=== PATIENT | male | born 1960 | race Caucasian/White ===

== ENCOUNTER 2023-04-29 09:05 | Outpatient (AMB) | payer MEDICARE, SELFPAY ==
--- NOTE | 2023-04-29 08:47 | MHC.PC.OV ---
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: No Accompanied by: Tabular Typist Allergies diphenhydramine [From Benadryl] Adverse Reaction (Intermediate, Verified 04/29/23 09:24) pain Medication List - Last Reconciled 04/29/23 by Tamia Medina CNP albuterol sulfate 90 mcg/actuation (Ventolin HFA) 2 puffs inhalation Q6H PRN ammonium lactate 5% appl topical atorvastatin 80 mg PO BEDTIME bisacodyl 10 mg PO BEDTIME bisacodyl 10 mg ND DAILY PRN bisacodyl 10 mg ND DAILY PRN bumetanide 2 mg PO DAILY dapagliflozin propanediol 10 mg PO DAILY dextrose (Dex4 Glucose) grams PO digoxin (Digox) 125 mcg PO DAILY erythromycin 0.5 inches ophthalmic (eye) QID glucagon HCl (Glucagon (HCl) Emergency Kit) 1 mg subcut Q20M PRN metoprolol tartrate 100 mg PO BID rivaroxaban 20 mg PO DAILY sodium phosphates 19-7 gram/118 mL (Fleet Enema) 118 mL ND DAILY PRN spironolactone 25 mg PO DAILY trazodone 25 mg PO BID Tobacco use date assessed: 04/29/23 Dental Screening Dental Screen Date: 04/29/23 Did you have a dental visit in the last 12 months?: No Did you have a dental problem in the last 6 months where you did not have access to dental care?: No Was dental information given to patient?: Yes HPI HPI Comments History of Present Illness Details New patient Prior PCP:?Dr. Fam Last office visit: About 3 months ago Last CPE: About 2 years ago Acute issue(s): Hypertension -He is on Bumetanide 2mg daily, metoprolol 100mg BID, spironolactone 25mg daily HLD -He is on atorvastatin 80mg QHS CHF -He is on Digoxin 125mcg daily, Dapagliflozin Propanediol 10mg daily Anxiety and Insomnia -He is on trazodone 25mg BID A-fib -He is on Rivaroxaban 20mg daily Constipation -He is on Bisacodyl 10mg daily. He notes that he has an order for Fleet enema but has never had to use it PVD -No medication Urinary incontinence -reports occasional urinary incontinence for the past 1 and half year. He wears briefs. He states he has never been evaluated for urinary incontinence by Urology. He has not taking medication for this PMHx: HTN, HLD, CHF, anxiety, insomnia, a-fib SurgHx: None FHx: None SocHx: smokes 10 cigarettes daily; have been smoking for 47 years. Non drinker. No recreational drugs. Reports excess skin and irritation around upper and lower lids of the the right eye, ongoing intermittently for several years. He notes that he is followed by [facility] in [place] and had skin biopsy last week; awaiting result He is followed by Dr. 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 He has been in rehab for 3 weeks and anticipates to return home next week. He states that he was admitted to [facility] for 3 days because I was rundown and was transferred to rehab. He is escorted by [facility] staff in a wheelchair. He notes that he is able to ambulate with assistance or assistive device such as a walker. [facility] Medical History (Updated 04/29/23 @ 18:37 by Tamia Medina CNP) Chronic pulmonary edema Insomnia A-fib Physical deconditioning Lesion of right eyelid CHF (congestive heart failure) Imbalance Neuropathy Anxiety High cholesterol High blood pressure Surgical History (Updated 04/29/23 @ 09:25 by Kristen Nair MA) No pertinent past surgical history Social History Housing: Other Patient Tobacco Use Status: Current everyday Tobacco user Cigarette Packs Per Day: 0.5 Cigarettes Per Day: 10 Years Smoked: 47 e-Cigarette/Vaping Use: Never Used service: No Current occupational status: disabled Cognitive needs: No Hearing needs: No Vision needs: No Questionnaire PHQ-9 Over the last 2 weeks, how often have you been bothered by any of the following problems? 1. Little interest or pleasure in doing things: more than half the days 2. Feeling down, depressed, or hopeless: more than half the days 3. Trouble falling or staying asleep, or sleeping too much: more than half the days 4. Feeling tired or having little energy: more than half the days 5. Poor appetite or overeating: several days 6. Feeling bad about yourself - or that you are a failure or have let yourself or your family down: not at all 7. Trouble concentrating on things, such as reading the newspaper or watching television: not at all 8. Moving or speaking so slowly that other people could have noticed. Or the opposite - being so fidgety or restless that you have been moving around a lot more than usual: not at all 9. Thoughts that you would be better off or of hurting yourself in some way: not at all Total score: 9 Depression Screening Interpretation: Positive Depression Screening Follow-up: Existing condition and In treatment Depression Screening Done: Yes 71823 - PHQ-9 Billing: Yes Source: Developed by Drs. Moustapha Figueredo, Susan Espinoza, Ck Burt and colleagues, with an educational suraj from [employer]. Thrive Questionnaire Date Thrive assessed: 04/29/23 I am a: Patient What is your living situation today?: I have a steady place to live Within the past 12 months, did the food you bought not last and you didn't have the money to get more?: Never true Within the past 12 months, did you worry whether your food would run out before you got money to buy more?: Never true Do you have trouble paying for medicines?: No Do you have trouble getting transportation to medical appointments?: Yes Do you have trouble paying your heating and electricity bill?: No Do you have trouble taking care of your child, family member or friend?: No Do you have trouble with day-to-day activities such as bathing, preparing meals, shopping, managing finances, etc.?: Yes Are you currently unemployed and looking for a job?: No Are you interested in more education?: No Please select the resources that you would like help with: Transportation and Daily support Currently or been in a relationship where the following occur: no concerns reported THRIVE Score: 1 AUDIT C Alcohol Use Questionnaire (AUDIT-C) 1. How often do you have a drink containing alcohol?: Never 3. How often do you have six or more drinks on one occasion?: Never Total Score: 0 ELANA-7 AMB Questionnaire ELANA-7 Date ELNAA - 7 assessed: 04/29/23 Feeling nervous, anxious, or on edge: 1 = Several days Not being able to stop or control worryin = More than half the days Worrying too much about different things: 2 = More than half the days Trouble relaxin = Not at all Being so restless that it is hard to sit still: 0 = Not at all Becoming easily annoyed or irritable: 2 = More than half the days Feeling afraid as if something awful might happen: 0 = Not at all Total ELANA-7 score (0-4 normal; 5-9 mild; 10-14 moderate; 15-21 severe): 7 Source: Developed by Drs. Moustapha Figueredo, Susan Espinoza, Ck Burt and colleagues, with an educational suraj from [employer]. ELANA-7 Assessment Billing ELANA-7 Assessment Tool: ELANA-7 Assessment 45223 Review of Systems Const Details: Const Denies chills, Denies fatigue, Denies fever(s), Denies headache(s) and Denies weakness ENT Denies dizziness and Denies headache(s) Card Denies chest pain, Denies lightheadedness, Denies dyspnea and Denies other (Palpitations) Resp Denies cough, Denies dyspnea, Denies wheezing and Denies other ( shortness of breath) GI Denies abdominal pain, Denies melena, Denies hematochezia, Denies change in bowel habits, Denies dyspepsia and Denies nausea Denies hematuria and Denies dysuria Musc Denies abnormal gait, Denies myalgias, Denies arthralgias, Denies numbness and Denies tingling Skin/Breast Denies rash, Denies unusual bruising and Denies wounds Neuro Denies abnormal gait, Denies dizziness, Denies headache(s), Denies memory loss, Denies numbness, Denies Sensory deficit (Neuro), Denies tingling and Denies weakness Psych Denies anxiety, Denies depression, Denies memory loss Endo Denies cold intolerance, Denies fatigue, Denies heat intolerance, Denies polydipsia and Denies polyuria Aller/Immun Denies wheezing Physical exam (Primary Care) Vital Signs: Last Vital Signs Temp 97.2 F 04/29/23 08:59 Pulse 72 04/29/23 08:59 Resp 13 04/29/23 08:59 BP 128/76 04/29/23 08:59 Pulse Ox 98 04/29/23 08:59 Oxygen Delivery Method Room Air 04/29/23 08:59 BMI result Body Mass Index 33.7 Tobacco/Smoking Status: Tobacco use Status Tobacco use date assessed 04/29/23 04/29/23 09:28 Patient Tobacco Use Status Current everyday Tobacco 04/29/23 09:28 e-Cigarette/Vaping Use Never Used 04/29/23 09:28 PHQ-9: PHQ-9 Score PHQ-9: Total score 9 04/29/23 18:17 Depression Screening Interpretation: Positive Depression Screening Follow-up: Existing condition and In treatment Thrive Assessment: Date of Thrive Assessment Date Thrive assessed 04/29/23 04/29/23 09:28 Currently or been in a relationship where the following occur: no concerns reported Const Other: General: no acute distress and well developed Nutritional Appearance: well nourished Orientation/consciousness: patient oriented x3 HENMT Head: Yes normocephalic and Yes atraumatic Eyes General: appearance normal, both eyes and all related structures Pupils: Equal, round and reactive pupils present EOM: EOMs intact bilaterally Resp Effort & Inspection: normal respiratory effort Auscultation: clear to auscultation bilaterally Cardio Rate: regular rate Rhythm: regular rhythm Heart sounds: S1 normal heart sound present, S2 normal heart sound present, no gallops, no murmurs and no rubs GI Palpation (GI): No Abdominal aortic bruit present, Soft to palpation, nontender, No hepatosplenomegaly present and No Rebound tenderness present Auscultation: normal bowel sounds General: Yes no CVA tenderness Back/Spine/Pelvis Back: no CVA tenderness Cervical Spine: cervical ROM normal and No Cervical spine tenderness Thoracic/Lumbar Spine: thoraco-lumbar ROM normal, No pain with thoraco-lumbar ROM, No thoracic spinal tenderness and No lumbar spinal tenderness Extrem General: Yes normal to inspection, No edema and No calf tenderness Skin General: warm and dry. Normal skin color. Normal skin turgor Lesions: excess skin with irritation around upper and lower right eyelids Rashes: no rashes Trauma: no lacerations or abrasions Wounds: no wounds Nails: normal Neuro General: patient oriented x3, gait normal and no focal neuro deficit Cranial nerves: Yes Equal, round and reactive pupils present Cognition (Neuro): normal cognition Gait exam (Neuro): Normal gait present Sensory Exam: No Sensory deficit (Neuro) Psych Appearance: grossly normal Affect: normal affect Attitude: cooperative Thought process: Normal thought process present Assessment and Plan Assessment & Plan (1) A-fib: Code(s): I48.91 - Unspecified atrial fibrillation Plan: Followed by cardiology Take Rivaroxaban as prescribed Follow-up in one month for an extended physical exam and lab reviews Return sooner with symptoms or concerns Verbalized understanding and agreed with treatment plan (2) High blood pressure: Code(s): I10 - Essential (primary) hypertension Plan: Blood pressure is controlled, 128/76 Take metoprolol, spironolactone, dapagliflozin propanediol and digoxin as prescribed Followed by cardiology Verbalized understanding and agreed with the plan (3) CHF (congestive heart failure): Code(s): I50.9 - Heart failure, unspecified Plan: Plan as above (4) High cholesterol: Code(s): E78.00 - Pure hypercholesterolemia, unspecified Plan: Take Atorvastatin as prescribed Will order labs and make changes as needed (5) Lesion of right eyelid: Code(s): H02.9 - Unspecified disorder of eyelid Plan: Reports chronic lesion to the right eye No acute symptoms Excess skin with irritation around upper and lower right eyelids Erythromycin ointment as prescribed Followed by ophthalmology. Recently had biopsy; awaiting results (6) Insomnia: Code(s): G47.00 - Insomnia, unspecified Plan: No acute symptoms Take trazodone as prescribed Follow-up with symptoms or concerns (7) Anxiety: Code(s): F41.9 - Anxiety disorder, unspecified Plan: PHQ-9 and ELANA-7 scores revealed mild depression and anxiety Plan as above (8) Unsteady gait: Code(s): R26.81 - Unsteadiness on feet Plan: Reports unsteady gait due to pinched nerve of his lumbar spine and neuropathy of his lumbar spine and bilateral lower extremity Use a wheelchair for ambulation most of the time. Also uses a walker for short distances Currently at a [facility] Encouraged to use assistive devices for ambulation to prevent fall Verbalized understanding and agreed with the plan (9) Urinary incontinence: Code(s): R32 - Unspecified urinary incontinence Plan: Occasional urinary incontinence for the past 1 and half year He has never been evaluated by Urology Referred to [facility] Neurology (10) Chronic constipation: Code(s): K59.09 - Other constipation Plan: Reports intermittent constipation. However, he has not had to use Fleet enema Bisacodyl and Fleet enema as prescribed Healthy diet and adequate hydration encouraged Follow-up with worsening or new symptoms Verbalized understanding and agreed with the plan (11) Laboratory tests ordered as part of a complete physical exam (CPE): Code(s): Z00.00 - Encounter for general adult medical examination without abnormal findings Plan: Fasting labs ordered in preparation of a complete physical exam. Advised to fast for at least 10 hours before getting labs drawn. May drink water Verbalized understanding and agreed with treatment plan. Orders: Orders Lipid Panel Today Z00.00 - Encounter for general adult medical examination without abnormal findings UA CC w/rflx Micro + Cult Today Z00.00 - Encounter for general adult medical examination without abnormal findings Complete Blood Count Auto Diff Today Z00.00 - Encounter for general adult medical examination without abnormal findings Comprehensive Brave. Panel Fast Today Z00.00 - Encounter for general adult medical examination without abnormal findings TSH reflex Free T4 Today Z00.00 - Encounter for general adult medical examination without abnormal findings PSA, Ultra Sensitive Today Z00.00 - Encounter for general adult medical examination without abnormal findings Referrals Urology Referral R32 - Unspecified urinary incontinence Coding Level of Care Code New Pt Level 4 (66634) Diagnoses A-fib I48.91 High blood pressure I10 CHF (congestive heart failure) I50.9 High cholesterol E78.00 Lesion of right eyelid H02.9 Insomnia G47.00 Anxiety F41.9 Unsteady gait R26.81 Urinary incontinence R32 Chronic constipation K59.09 Laboratory tests ordered as part of a complete physical exam (CPE) Z00.00 Additional Codes ELANA-7 Assessment Billing - ELANA-7 Assessment Tool: ELANA-7 Assessment 82097 ([id number])
[2023-04-29 08:59] VITALS: BP 128/76; PULSE 72; RESP 13; TEMP 36.2; O2SAT 98; BMI 33.7
== END 2023-04-29 10:09 | disposition home or self-care (01) ==
PROVIDERS: PCP Family Medicine; Visit Provider Nurse Practitioner Family
DX: I48.91 Unspecified atrial fibrillation (principal); I11.0 Hypertensive heart disease with heart failure; I50.9 Heart failure, unspecified; E78.00 Pure hypercholesterolemia, unspecified; H02.9 Unspecified disorder of eyelid; G47.00 Insomnia, unspecified; R26.81 Unsteadiness on feet; F41.9 Anxiety disorder, unspecified; R32 Unspecified urinary incontinence; K59.09 Other constipation
CPT/HCPCS: 99204

== ENCOUNTER 2023-05-18 14:42 | Outpatient (AMB) | payer MEDICARE, SELFPAY ==
[2023-05-18 14:44] VITALS: BP 150/90; PULSE 69; O2SAT 97
--- NOTE | 2023-05-18 14:44 | A.OFFPC_ITS ---
Vital Signs 05/18/23 14:44 Height 5 ft 6 in BMI Reason not done Patient refused/unable BP 150/90 H Blood Pressure Location Lt brachial Position Sitting Pulse 69 Pulse Source Pulse Oximeter Pulse Oximetry (%) 97 Oxygen Delivery Method Room Air Intake Visit Reasons: [place] [facility], sob Intake Note: Patient is here for hospital discharge follow up. Patient was discharged from [facility] on 05/10/2023 Diabetes Territory Manager Required: No Allergies diphenhydramine [From Benadryl] Adverse Reaction (Intermediate, Verified 05/18/23 15:40) pain Medication List - Last Reconciled 05/18/23 by Viktoria Kaur, SENIOR NET PROGRAMMER- albuterol sulfate 90 mcg/actuation (Ventolin HFA) 2 puffs inhalation Q6H PRN ammonium lactate 5% appl topical atorvastatin 80 mg PO BEDTIME bisacodyl 10 mg PO BEDTIME bisacodyl 10 mg [place] DAILY PRN bisacodyl 10 mg [place] DAILY PRN bumetanide 2 mg PO DAILY dapagliflozin propanediol 10 mg PO DAILY dextrose (Dex4 Glucose) grams PO digoxin (Digox) 125 mcg PO DAILY glucagon HCl (Glucagon (HCl) Emergency Kit) 1 mg subcut Q20M PRN metoprolol tartrate 100 mg PO BID rivaroxaban 20 mg PO DAILY sodium phosphates 19-7 gram/118 mL (Fleet Enema) 118 mL [place] DAILY PRN spironolactone 25 mg PO DAILY trazodone 25 mg PO BEDTIME Tobacco use date assessed: 05/18/23 Dental Screening Dental Screen Date: 05/18/23 Did you have a dental visit in the last 12 months?: No Did you have a dental problem in the last 6 months where you did not have access to dental care?: No HPI HPI Comments History of Present Illness Details 62-year-old male being seen today for a post discharge follow-up. Presented to [facility] and discharged to [facility] on 04/04/2023 where he remained until 05/11/2023. Rehab discharge summary reviewed. Discharge home with services. Admitting diagnoses include Acute hypoxic respiratory failure, anemia, CHF, hypertension, physical deconditioning, lesion of right eyelid, tobacco abuse, CKD3 Chronic medical conditions significant for CHF with LVEF of 25%, severe global hypokinesis, CAD, hypertension, PVD, AFib, ckd He was admitted for acute CHF exacerbation. This was treated with IV Lasix. He also required supplemental oxygen oxygen. Status post diuresis his creatinine nathalia. IV Lasix was discontinued and Farxiga was started. Lisinopril was discontinued. Oxygen sats nocturnally in the mid 80s. Required follow up post discharge [facility] in 2 weeks 05/25/23 Dr Nava Supervisor Compounding And Finishing for results of eyelid biopsy Repeat CBC hematocrit 51, GFR 50, proBNP elevated 6770 Discharge DME Wheelchair Home oxygen at 2 liters/minute Med changes * no discharge medication list provided at the time of the visit. This is been requested Fluid restriction Farxiga 10 mg started Lisinopril discontinued Here today feeling okay. Since return home his biggest complaint right now is constipation. Reports he has not had a bowel movement in 3 days. History of constipation with hemorrhoidal bleeding. He is requesting medications to help. Denies nausea or vomiting. Weight today was 208. He has had no falls. Reports his breathing has been okay. Reports that he did not receive his home oxygen which was ordered at time of discharge to be worn at night. He is unsure what his O2 sats have been in the evening. He does continue to smoke tobacco. Admits to not following his fluid restrictions as his medications make him feel thirsty. He has a lifeline. Active with [email or web address] for services. [place]. Un fortunately he does not have a phone. He states that he received the biopsy results from the right eyelid lesion and this was not cancerous. He was told to follow up with Dermatology. [facility] Medical History (Updated 05/18/23 @ 17:05 by Viktoria Kaur [facility]) Chronic pulmonary edema Insomnia A-fib Physical deconditioning Lesion of right eyelid CHF (congestive heart failure) Imbalance Neuropathy Anxiety High cholesterol High blood pressure Surgical History (Updated 04/29/23 @ 09:25 by Kristen Nair MA) No pertinent past surgical history Social History Housing: Other Patient Tobacco Use Status: Current everyday Tobacco user Cigarette Packs Per Day: 0.5 Cigarettes Per Day: 10 Years Smoked: 47 e-Cigarette/Vaping Use: Never Used service: No Current occupational status: disabled Cognitive needs: No Hearing needs: No Vision needs: No Questionnaire Thrive Questionnaire Date Thrive assessed: 04/29/23 AUDIT C Alcohol Use Questionnaire (AUDIT-C) 1. How often do you have a drink containing alcohol?: Never 3. How often do you have six or more drinks on one occasion?: Never Total Score: 0 ELANA-7 AMB Questionnaire ELANA-7 Date ELANA - 7 assessed: 04/29/23 Source: Developed by Drs. Moustapha Figueredo, Susan Espinoza, Ck Burt and colleagues, with an educational suraj from [employer]. Review of Systems Const All systems reviewed & are unremarkable except as noted in HPI and below Physical exam (Primary Care) Vital Signs: Last Vital Signs Pulse 69 05/18/23 14:44 BP 150/90 H 05/18/23 14:44 Pulse Ox 97 05/18/23 14:44 Oxygen Delivery Method Room Air 05/18/23 14:44 BMI Assessment/Plan discussion: High BMI High, discussed plan: dietary Tobacco/Smoking Status: Tobacco use Status Tobacco use date assessed 05/18/23 05/18/23 14:45 Patient Tobacco Use Status Current everyday Tobacco 05/18/23 14:45 e-Cigarette/Vaping Use Never Used 05/18/23 14:45 Are you ready to quit: No Tobacco cessation counseling provided: Yes Items discussed: Other Relapse Prevention: discussed the importance of a supportive environment, discussed extending NRT, discussed negative mood or depression after quitting, weight gain after smoking is common and discussed dietary, exercise and/or lifestyle changes Number of minutes spent counselin CPT code: 91263 - 4-10 Minutes Thrive Assessment: Date of Thrive Assessment Date Thrive assessed 04/29/23 05/18/23 14:45 Const Other: Chronically ill-appearing sitting in wheelchair Right upper lid is a large skin lesion Mucous membranes moist AFib Lung sounds diminished throughout Incontinent of urine Bilateral lower extremities hairless, hemosiderin staining, cool to touch below knees, multiple ulcers to bilateral lower extremities, unable to palpate pedal pulses bilat, sitting in wheelchair Assessment and Plan Assessment & Plan (1) Hospital discharge follow-up: Code(s): Z09 - Encounter for follow-up examination after completed treatment for conditions other than malignant neoplasm (2) Chronic respiratory failure with hypoxia, on home O2 therapy: Code(s): J96.11 - Chronic respiratory failure with hypoxia; Z99.81 - Dependence on supplemental oxygen (3) CAD (coronary artery disease), [place] coronary artery: Code(s): I25.10 - Atherosclerotic heart disease of [place] coronary artery without angina pectoris Qualifiers: [place] vs. transplanted heart: [place] heart Associated angina: without angina Qualified Code(s): I25.10 - Atherosclerotic heart disease of [place] coronary artery without angina pectoris (4) PVD (peripheral vascular disease): Code(s): I73.9 - Peripheral vascular disease, unspecified (5) CKD (chronic kidney disease) stage 3, GFR 30-59 ml/min: Code(s): N18.30 - Chronic kidney disease, stage 3 unspecified Qualifiers: Chronic kidney disease stage 3 subtype: stage 3a (GFR 45-59) Qualified Code(s): N18.31 - Chronic kidney disease, stage 3a (6) Atherosclerotic PVD with ulceration: Code(s): I70.209 - Unspecified atherosclerosis of [place] arteries of extremities, unspecified extremity; L98.499 - Non-pressure chronic ulcer of skin of other sites with unspecified severity Qualifiers: Peripheral atherosclerosis location: lower extremity Peripheral a therosclerosis artery type: [place] artery Laterality: bilateral Lower extremity ulceration location: other part of lower leg Qualified Code(s): I70.238 - Atherosclerosis of [place] arteries of right leg with ulceration of other part of lower leg; I70.248 - Atherosclerosis of [place] arteries of left leg with ulceration of other part of lower leg (7) Lesion of right eyelid: Code(s): H02.9 - Unspecified disorder of eyelid (8) Chronic constipation: Code(s): K59.09 - Other constipation Plan: Complex gentleman here today for hospital discharge follow up. I have sent in a refill of his bumetanide, Farxiga, digoxin, metoprolol, spironolactone, ammonium lactate. For his constipation I have sent in bisacodyl to use p.r.n. and Colace 100 mg p.o. b.i.d. to use routinely. He needs labs drawn. I have placed these orders. We will have staff faxe order to the [facility] to have drawn prior to the next visit with his PCP We will need to have the nurse piano case and bench assembler follow up on the oxygen at home. As patient reports he does not have this. He is at high risk for readmission given noncompliance with fluid restriction. He states that he is aware of need for compliance and that he does not want to go back to the hospital or be placed in a long-term care facility. He also admits that he is struggling at home. Staff needed to ensure that his medications would be delivered tonight via [facility]. I have referred him to Dermatology to follow up on this eyelid lesion. I have also referred him to vascular surgery given the exam today. [facility] is managing the lower extremities with ulcerations. Follow up with PCP next week for an extended visit. Orders: Orders Comprehensive Met. Panel Today I73.9 - Peripheral vascular disease, unspecified, J96.11 - Chronic respiratory failure with hypoxia, N18.30 - Chronic kidney disease, stage 3 unspecified, Z99.81 - Dependence on supplemental oxygen Complete Blood Count no Diff Today I73.9 - Peripheral vascular disease, unspecified, J96.11 - Chronic respiratory failure with hypoxia, N18.30 - Chronic kidney disease, stage 3 unspecified, Z99.81 - Dependence on supplemental oxygen Referrals Vascular Surgery Referral I70.209 - Unspecified atherosclerosis of [place] arteries of extremities, unspecified extremity, I73.9 - Peripheral vascular disease, unspecified, L98.499 - Non-pressure chronic ulcer of skin of other sites with unspecified severity Dermatology Referral H02.9 - Unspecified disorder of eyelid Medications: New bumetanide 2 mg PO DAILY 30 tabs 0RF metoprolol tartrate 100 mg PO BID 60 tabs 0RF spironolactone 25 mg PO DAILY 30 tabs 0RF dapagliflozin propanediol 10 mg PO DAILY 30 tabs 0RF docusate sodium (Colace) 100 mg PO BID 60 caps 0RF ammonium lactate 12% 1 appl topical BID 385 grams 0RF Changed From bisacodyl 10 mg PO BEDTIME To bisacodyl take every 3 days as needed for constipation 10 mg (2 x 5 mg) PO BEDTIME PRN 14 tabs 0RF constipation Coding Level of Care Code TCM Mod MDM <= 14 Days Diagnoses Hospital discharge follow-up Z09 Chronic respiratory failure with hypoxia, on home O2 therapy J96.11; Z99.81 Coronary artery disease involving [place] coronary artery of [place] heart without angina pectoris I25.10 [place] vs. transplanted heart: [place] heart Associated angina: without angina PVD (peripheral vascular disease) I73.9 Stage 3a chronic kidney disease N18.31 Chronic kidney disease stage 3 subtype: stage 3a (GFR 45-59) Atherosclerosis of [place] artery of both lower extremities with bilateral ulceration of other part of lower legs I70.238; I70.248 Peripheral atherosclerosis location: lower extremity Peripheral atherosclerosis artery type: [place] artery Laterality: bilateral Lower extremity ulceration location: other part of lower leg Lesion of right eyelid H02.9 Chronic constipation K59.09 Additional Codes Vital Signs *Quality* - CPT code: 68288 - 4-10 Minutes ([id number])
== END 2023-05-18 16:23 | disposition home or self-care (01) ==
PROVIDERS: PCP Family Medicine; Visit Provider Nurse Practitioner Family
DX: J96.11 Chronic respiratory failure with hypoxia (principal); N18.31 Chronic kidney disease, stage 3a; I70.238 Atherosclerosis of native arteries of right leg with ulceration of other part of lower leg; I70.248 Atherosclerosis of native arteries of left leg with ulceration of other part of lower leg; Z09 Encounter for follow-up examination after completed treatment for conditions other than malignant neoplasm; Z99.81 Dependence on supplemental oxygen; I25.10 Atherosclerotic heart disease of native coronary artery without angina pectoris; H02.9 Unspecified disorder of eyelid; K59.09 Other constipation
CPT/HCPCS: 99215

== ENCOUNTER 2023-06-10 11:19 | Outpatient (REF) | payer MEDICARE, SELFPAY ==
[2023-06-10 14:39] LABS: Basophils Absolute Auto 0.1 X10*3/uL (0.0-0.2); Basophils Percent Auto 0.7 % (0-2); Eosinophils Absolute Auto 0.7 X10*3/uL (0.0-0.4); Eosinophils Percent Auto 4.6 % (0-4); Hematocrit 53.5 % (42.0-52.0); Hemoglobin 17.3 g/dl (14.0-18.0); Imm Gran Pct Auto 0.7 % (0.0-0.4); Lymphocytes Absolute Auto 2.2 X10*3/uL (1.2-4.9); Lymphocytes Percent Auto 15.4 % (20-40); MANUAL DIFF FLAG SCAN; Mean Corpuscular HGB Conc 32.3 g/dl (31.0-36.0); Mean Corpuscular Volume 92.9 fL (80.0-98.0); Mean Platelet Volume 10.6 fL (9.4-12.4); Monocytes Absolute Auto 1.8 X10*3/uL (0.1-1.2); Monocytes Percent Auto 12.5 % (2-11); Neutrophils Absolute Auto 9.3 x10*3/uL (2.0-8.3); Neutrophils Percent Auto 66.1 % (45-73); Platelet Count 289 X10*3/uL (160-400); Red Blood Count 5.76 X10*6/uL (4.60-5.80); Red Cell Distribution Width 15.9 % (11.0-16.0); SCAN SMEAR FLAG 1; White Blood Count 14.1 X10*3/uL (4.8-10.8)
[2023-06-10 15:06] LABS: Appearance Urine Clear; Color Urine Yellow; Glucose Urine UA 500 mg/dL (Negative); Leukocyte Esterase Urine Negative (Negative); Nitrite Urine Negative (Negative); UMIC TRIGGER UACC YES; Urine Blood Small (1+) (Negative); Urine Ketones Negative (Negative); Urine Protein 30 (1+) mg/dL (Neg-Trace)
[2023-06-10 15:11] LABS: Alanine Aminotransferase 30 U/L (0-40); Albumin Level 4.1 g/dL (3.5-5.0); Alkaline Phosphatase 120 U/L (39-117); Anion Gap 16 (12-20); Aspartate Amino Transferase 28 U/L (5-37); Bilirubin Total 1.5 mg/dL (0.0-1.0); Blood Urea Nitrogen 36 mg/dL (9-16); Calcium 10.9 mg/dL (8.4-10.2); Carbon Dioxide 30 mmol/L (22-29); Chloride 99 mmol/L (96-108); Cholesterol 177 mg/dL (<200); Estimated Glomerular Filt Rate > 60; Glucose Fasting 110 mg/dL (60-99); Glucose Random 112 mg/dL (60-115); HDL Cholesterol 47 mg/dL (>40); LDL Cholesterol Calculated 101 mg/dL (<100); Potassium 3.9 mmol/L (3.3-5.1); Sodium 141 mmol/L (135-145); Total Protein 9.7 g/dL (6.5-8.0); Triglycerides 149 mg/dL (<150)
[2023-06-10 15:31] LABS: TSH reflex Free T4 2.45 uIU/mL (0.32-4.0)
[2023-06-10 15:41] LABS: SLIDE REVIEW VERIFIED
[2023-06-10 16:48] LABS: Bacteria Urine None Seen (None Seen); Hyaline Casts Urine 0-2 /LPF (0-2); Squamous Epithelial Cell Urine 0-2 /HPF (0-2); WBC Urine 0-5 /HPF (0-5)
[2023-06-15 20:32] LABS: PSA, Ultra Sensitive 4.82 ng/mL
== END 2023-06-10 11:20 | disposition home or self-care (01) ==
LOC: HO.WFDLDS 11:19
PROVIDERS: Visit Provider Nurse Practitioner Family
DX: Z00.00 Encounter for general adult medical examination without abnormal findings (principal); J96.11 Chronic respiratory failure with hypoxia; N18.30 Chronic kidney disease, stage 3 unspecified; I73.9 Peripheral vascular disease, unspecified; Z12.5 Encounter for screening for malignant neoplasm of prostate; Z99.81 Dependence on supplemental oxygen
CPT/HCPCS: 36415; 80053; 80061; 81001; 81003; 84153; 84443; 85025

== ENCOUNTER 2023-06-10 11:43 | Outpatient (AMB) | payer MEDICARE, SELFPAY ==
[2023-06-10 11:47] VITALS: BP 130/76; RESP 13; TEMP 36.6; O2SAT 99; BMI 33.4
--- NOTE | 2023-06-10 11:47 | A.OFFPC_ITS ---
Vital Signs 06/10/23 11:47 Height 5 ft 6 in Weight 207 lb BMI 33.4 BP 130/76 Blood Pressure Location Rt brachial Position Sitting Respiration 13 Pulse Source Pulse Oximeter Temp 98 F Temp Source Temporal Artery Scan Pulse Oximetry (%) 99 Oxygen Delivery Method Room Air Intake Visit Reasons: follow up labs Loader Machine Required: No Accompanied by: Self / Same As Patient Allergies diphenhydramine [From Benadryl] Adverse Reaction (Intermediate, Verified 06/10/23 12:02) pain Medication List - Last Reconciled 06/10/23 by Tamia Medina CNP albuterol sulfate 90 mcg/actuation (Ventolin HFA) 2 puffs inhalation Q6H PRN ammonium lactate 12% 1 appl topical BID atorvastatin 80 mg PO BEDTIME 30 days bisacodyl 10 mg [place] DAILY PRN bisacodyl 10 mg (2 x 5 mg) PO BEDTIME PRN bumetanide 2 mg PO DAILY dapagliflozin propanediol 10 mg PO DAILY dextrose (Dex4 Glucose) grams PO digoxin (Digox) 125 mcg PO DAILY docusate sodium (Colace) 100 mg PO BID glucagon HCl (Glucagon (HCl) Emergency Kit) 1 mg subcut Q20M PRN metoprolol tartrate 100 mg PO BID miscellaneous medical supply Extra-large pull-ups - 6 daily 1 Large BP cuff 1 pulse oximeter 1 digital scale Washable bed pads - 2 per month Disposable bed pads - 1 daily 1 wolff size mattress water proof cover rivaroxaban 20 mg PO DAILY spironolactone 25 mg PO DAILY trazodone 25 mg PO BEDTIME Tobacco use date assessed: 06/10/23 Dental Screening Dental Screen Date: 06/10/23 Did you have a dental visit in the last 12 months?: No Did you have a dental problem in the last 6 months where you did not have access to dental care?: No Was dental information given to patient?: Patient has dentist HPI HPI Comments History of Present Illness Details 62-year-old male presents for an extende d physical exam He notes that he forget to get blood work done before this appointment. 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 He was followed by Neurology. He will like to be re-evaluated by Neurology. 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 Nava, Cardiology and ophthalmology He was recently referred to [facility] urology and vascular surgery, and Dermatology He smokes 3-4 cigarettes daily. He has been smoking for the past 45 years. He notes that he smoked a pack for 30 years He states that his last colonoscopy was in 2013: normal He notes that he has not been vaccinated for shingles he is up-to-date for the flu vaccine [facility] Medical History (Updated 06/10/23 @ 16:34 by Tamia Medina [facility]) Chronic pulmonary edema Insomnia A-fib Physical deconditioning Lesion of right eyelid CHF (congestive heart failure) Imbalance Neuropathy Anxiety High cholesterol High blood pressure Surgical History (Updated 06/10/23 @ 11:53 by WAYNE Luo) History of biopsy No pertinent past surgical history Social History Housing: Assisted Living Facility Patient Tobacco Use Status: Current everyday Tobacco user Cigarette Packs Per Day: 0.5 Cigarettes Per Day: 10 Years Smoked: 47 e-Cigarette/Vaping Use: Never Used service: No Current occupational status: disabled Cognitive needs: No Hearing needs: No Vision needs: No Questionnaire PHQ-9 Over the last 2 weeks, how often have you been bothered by any of the following problems? 1. Little interest or pleasure in doing things: several days 2. Feeling down, depressed, or hopeless: not at all 3. Trouble falling or staying asleep, or sleeping too much: several days 4. Feeling tired or having little energy: several days 5. Poor appetite or overeating: several days 6. Feeling bad about yourself - or that you are a failure or have let yourself or your family down: not at all 7. Trouble concentrating on things, such as reading the newspaper or watching television: not at all 8. Moving or speaking so slowly that other people could have noticed. Or the opposite - being so fidgety or restless that you have been moving around a lot more than usual: not at all 9. Thoughts that you would be better off or of hurting yourself in some way: not at all Total score: 4 Depression Screening Interpretation: Negative Depression Screening Done: Yes 47519 - PHQ-9 Billing: Yes Source: Developed by Drs. Moustapha Figueredo, Ck [address] and colleagues, with an educational suraj from [employer]. Thrive Questionnaire Date Thrive assessed: 04/29/23 AUDIT C Alcohol Use Questionnaire (AUDIT-C) 1. How often do you have a drink containing alcohol?: Never 3. How often do you have six or more drinks on one occasion?: Never Total Score: 0 ELANA-7 AMB Questionnaire ELANA-7 Date ELANA - 7 assessed: 06/10/23 Feeling nervous, anxious, or on edge: 1 = Several days Not being able to stop or control worryin = Not at all Worrying too much about different things: 0 = Not at all Trouble relaxin = Several days Being so restless that it is hard to sit still: 0 = Not at all Becoming easily annoyed or irritable: 1 = Several days Feeling afraid as if something awful might happen: 0 = Not at all Total ELANA-7 score (0-4 normal; 5-9 mild; 10-14 moderate; 15-21 severe): 3 Source: Developed by Drs. Moustapha Figueredo, Susan Espinoza, Ck [address] and colleagues, with an educational suraj from [employer]. ELANA-7 Assessment Billing ELANA-7 Assessment Tool: ELANA-7 Assessment 16728 Review of Systems Const Details: Denies chills, Denies fatigue, Denies fever(s), Denies headache(s) and Denies weakness HEENT Denies change in vision, Denies dizziness, Denies headache(s), Denies hearing loss, Denies nasal congestion, Denies sinus pain, Denies sinus pressure and Denies sore throat Card Denies chest pain, Denies lightheadedness, Denies dyspnea and Denies other (palp itations) Resp Denies cough, Denies dyspnea and Denies wheezing GI Denies abdominal pain, Denies melena, Denies hematochezia, Denies change in bowel habits, Denies dyspepsia and Denies nausea Denies hematuria and Denies dysuria Musc Denies abnormal gait, Denies myalgias, Denies arthralgias, Denies numbness and Denies tingling Skin/Breast Denies rash, Denies unusual bruising and Denies wounds Neuro Denies abnormal gait, Denies dizziness, Denies headache(s), Denies memory loss, Denies numbness, Denies Sensory deficit (Neuro), Denies tingling and Denies weakness Psych Denies anxiety, Denies depression and Denies memory loss Endo Denies cold intolerance, Denies fatigue, Denies heat intolerance, Denies polydipsia and Denies polyuria Fernie/Lymph Denies easy bleeding and Denies easy bruising Aller/Immun Denies wheezing Physical exam (Primary Care) Vital Signs: Last Vital Signs Temp 98 F 06/10/23 11:47 Resp 13 06/10/23 11:47 BP 130/76 06/10/23 11:47 Pulse Ox 99 06/10/23 11:47 Oxygen Delivery Method Room Air 06/10/23 11:47 BMI result Body Mass Index 33.4 Tobacco/Smoking Status: Tobacco use Status Tobacco use date assessed 06/10/23 06/10/23 11:56 Patient Tobacco Use Status Current everyday Tobacco 06/10/23 11:56 e-Cigarette/Vaping Use Never Used 06/10/23 11:56 PHQ-9: PHQ-9 Score PHQ-9: Total score 4 06/10/23 13:17 Depression Screening Interpretation: Negative Thrive Assessment: Date of Thrive Assessment Date Thrive assessed 04/29/23 06/10/23 11:56 Const Other: General: no acute distress, well developed, alert and awake Nutritional Appearance: well nourished Orientation/consciousness: patient oriented x3 HENMT Head: Yes normocephalic and Yes atraumatic Ears: hearing grossly normal bilaterally and TM's normal bilaterally General nose exam: Normal external nose present and Normal nares present Mouth: Normal oral and palatal mucosa present and moist mucous membranes Teeth and gingiva: dentition normal Throat: Yes oropharynx normal Eyes Pupils: Equal, round and reactive pupils present and Pupil accommodation reflex normal EOM: EOMs intact bilaterally Neck Neck: Yes normal visual inspection, Yes no lymphadenopathy and Yes trachea midline Thyroid: Thyroid normal Carotids: no bruits Lymphatic: no lymphadenopathy noted Chest Chest palpation & inspection: normal inspection of the chest Resp Effort & Inspection: normal respiratory effort Auscultation: clear to auscultation bilaterally Cardio Rate: regular rate Rhythm: regularly irregular rhythm Heart sounds: S1 normal heart sound present, S2 normal heart sound present, no gallops, no murmurs and no rubs Bruits: no abdominal aortic bruits and no carotid bruits GI Palpation (GI): No Abdominal aortic bruit present, Soft to palpation, nontender, No hepatosplenomegaly present and No Rebound tenderness present Auscultation: normal bowel sounds General: Yes no CVA tenderness Back/Spine/Pelvis Back: no CVA tenderness Cervical Spine: cervical ROM normal and No Cervical spine tenderness Thoracic/Lumbar Spine: thoraco-lumbar ROM normal, No pain with thoraco-lumbar ROM, No thoracic spinal tenderness and No lumbar spinal tenderness Skin General: warm and dry. Normal skin color. Normal skin turgor Lesions: excess skin with irritation around upper right eyelid Rashes: no rashes Trauma: no lacerations or abrasions Wounds: no wounds Nails: normal Neuro General: patient oriented x3, gait normal and CN's II-XI intact bilaterally Cranial nerves: Yes Equal, round and reactive pupils present Cognition (Neuro): normal cognition Gait exam (Neuro): Abormal gait present Motor exam (neuro): 5/5 motor strength present throughout Sensory Exam: No Sensory deficit (Neuro) Deep tendon reflexes (DTR's): Right patellar reflex intensity grade: Not performed. Patient in wheelchair and unable to get on exam table Extrem General: Yes normal to inspection, No edema and No calf tenderness Psych Appearance: grossly normal Affect: normal affect Attitude: cooperative Thought process: Normal thought process present Assessment and Plan Assessment & Plan (1) Encounter for routine adult physical exam with abnormal findings: Code(s): Z00.01 - Encounter for general adult medical examination with abnormal findings Plan: He is mostly wheelchair-bound at baseline. Uses a cane for ambulation. His gait is unsteady Advised to continue current treatment regimen Healthy diet encouraged Follow-up in 3 months for hypertension and review of recent lab results or return sooner with symptoms or concerns Verbalized understanding and agreed with treatment plan (2) High blood pressure: Code(s): I10 - Essential (primary) hypertension Plan: Blood pressure is controlled, 130/76 Continue current treatment regimen Low-sodium diet encouraged He had blood work done today and will be reviewed at his next appointment. Will contact him sooner with critical results Follow-up in 3 months or return sooner with symptoms or concerns Verbalized understanding and agreed with the treatment plan (3) History of spinal stenosis: Code(s): Z87.39 - Personal history of other diseases of the musculoskeletal system and connective tissue Plan: Reports L4 and L5 fusion 10 years ago He notes neuropathy to his lumbar spine and BLE and numbness to his bilateral upper and lower extremity for about 10 years He walks with a walker for short distances and uses a wheelchair for long distances. His gait is unsteady He was followed by neurologist and request to be evaluated by neurologist again Instructed on safety with ambulation to prevent fall Referred to [facility] Neurology (4) Unsteady gait: Code(s): R26.81 - Unsteadiness on feet Plan: Attributes to spinal stenosis with L4 and L5 fusion and neuropathy to his lumbar spine and BLE and numbness to his bilateral upper Plan as above (5) PVD (peripheral vascular disease): Code(s): I73.9 - Peripheral vascular disease, unspecified Plan: Chronic erythema to bilateral lower legs and feet He has a referral in place for vascular surgery with [facility] (6) Lesion of right eyelid: Code(s): H02.9 - Unspecified disorder of eyelid Plan: He notes that recent biopsy revealed benign lesion He has Dermatology referral in place (7) CHF (congestive heart failure): Code(s): I50.9 - Heart failure, unspecified Plan: History of CHF Followed by Dr. Nava, cardiology (8) A-fib: Code(s): I48.91 - Unspecified atrial fibrillation Plan: Followed by Dr. Nava, cardiology (9) Urinary incontinence: Code(s): R32 - Unspecified urinary incontinence Plan: He has an appointment scheduled with [facility] Urology in July 2023 (10) Colon cancer screening: Code(s): Z12.11 - Encounter for screening for malignant neoplasm of colon Plan: Last colonoscopy was normal in 2012 Referred to [facility] gastroenterology for a colonoscopy (11) Screening for lung cancer: Code(s): Z12.2 - Encounter for screening for malignant neoplasm of respiratory organs Plan: Smoking history of 45 years with 30 pack years He has never had a LDCT of his lungs LDCT scan ordered (12) Smoking: Code(s): F17.200 - Nicotine dependence, unspecified, uncomplicated Plan: He smokes 3-4 cigarettes daily. Smoking history of 45 years with 30 pack years Instructed on the health risks and complications of cigarette smoking. Smoking cessation encouraged Advised to inform his PCP if he wants medication treatment for smoking cessation LDCT ordered for lung screening Verbalized understanding and agreed with treatment plan (13) Vaccine counseling: Code(s): Z71.85 - Encounter for immunization safety counseling Plan: He has not been vaccinated for shingles Instructed on the importance of vaccination and encouraged to get vaccinated for shingles. He may request the vaccine from his local pharmacy Verbalized understanding and agreed with the plan Orders: Referrals Neurology Referral R26.81 - Unsteadiness on feet, Z87.39 - Personal history of other diseases of the musculoskeletal system and connective tissue Gastroenterology Referral Z12.11 - Encounter for screening for malignant neoplasm of colon Medications: New miscellaneous medical supply Extra-large pull-ups - 6 daily 1 Large BP cuff 1 pulse oximeter 1 digital scale Washable bed pads - 2 per month Disposable bed pads - 1 daily 1 wolff size mattress water proof cover 1 ea 5RF Coding Level of Care Code Est Pt Prev Care 40-64y(78613) Diagnoses Encounter for routine adult physical exam with abnormal findings Z00.01 High blood pressure I10 History of spinal stenosis Z87.39 Unsteady gait R26.81 PVD (peripheral vascular disease) I73.9 Lesion of right eyelid H02.9 CHF (congestive heart failure) I50.9 A-fib I48.91 Urinary incontinence R32 Colon cancer screening Z12.11 Screening for lung cancer Z12.2 Smoking F17.200 Vaccine counseling Z71.85 Additional Codes ELANA-7 Assessment Billing - ELANA-7 Assessment Tool: ELANA-7 Assessment [id number] ([id number])
== END 2023-06-10 12:37 | disposition home or self-care (01) ==
PROVIDERS: PCP Family Medicine; Visit Provider Nurse Practitioner Family
DX: Z00.00 Encounter for general adult medical examination without abnormal findings (principal); I73.9 Peripheral vascular disease, unspecified; I50.9 Heart failure, unspecified; I48.91 Unspecified atrial fibrillation; I10 Essential (primary) hypertension; Z87.39 Personal history of other diseases of the musculoskeletal system and connective tissue; R26.81 Unsteadiness on feet; H02.9 Unspecified disorder of eyelid; R32 Unspecified urinary incontinence; Z12.11 Encounter for screening for malignant neoplasm of colon; Z12.2 Encounter for screening for malignant neoplasm of respiratory organs; F17.210 Nicotine dependence, cigarettes, uncomplicated
CPT/HCPCS: 99396

== ENCOUNTER 2023-08-26 12:39 | Outpatient (AMB) | payer MEDICARE, SELFPAY ==
--- NOTE | 2023-08-26 13:12 | MHC.OFFVIS ---
Intake Visit Reasons: Unspecified urinary incontinence Intake Note: New Patient presents today for initial visit to establish treatment for : urinary incontinence Urology Medications: none Allergies to Antibiotic: none Blood Thinner: rivaroxaban PVR: 77ml's Configuration Management Specialist Required: No Accompanied by: Self / Same As Patient Allergies diphenhydramine [From Benadryl] Adverse Reaction (Intermediate, Verified 08/26/23 13:32) pain Medication List - Last Reconciled 08/26/23 by SHAQUILLE Lai- albuterol sulfate 90 mcg/actuation (Ventolin HFA) 2 puffs inhalation Q6H PRN ammonium lactate 12% 1 appl topical BID atorvastatin 80 mg PO BEDTIME 30 days bisacodyl 10 mg (2 x 5 mg) PO BEDTIME PRN bisacodyl 10 mg [place] DAILY PRN 30 days bumetanide 2 mg PO DAILY dapagliflozin propanediol 10 mg PO DAILY dextrose (Dex4 Glucose) orally; digoxin 125 mcg PO DAILY 30 days docusate sodium (Colace) 100 mg PO BID glucagon HCl (Glucagon (HCl) Emergency Kit) 1 mg subcut Q20M PRN metoprolol tartrate 100 mg PO BID miscellaneous medical supply Extra-large pull-ups - 6 daily 1 Large BP cuff 1 pulse oximeter 1 digital scale Washable bed pads - 2 per month Disposable bed pads - 1 daily 1 wolff size mattress water proof cover nicotine (Nicoderm CQ) 1 patch transdermal DAILY 28 days rivaroxaban 20 mg PO DAILY 30 days spironolactone 25 mg PO DAILY trazodone 25 mg (1/2 x 50 mg) PO BEDTIME 30 days HPI Comments Details: Nadia is a 63-year-old male patient of Dr. Figueroa. He has a past medical history of insomnia, AFib, chronic pulmonary edema, lesion of the right eyelid, CHF, neuropathy, anxiety, hypercholesteremia, and hypertension. Presents to the office today as a new patient for urinary incontinence. In discussion with the patient today he reports a longstanding history of ongoing lower urinary tract symptoms of urinary urgency, urinary frequency, with episodes of incontinence for many years however feels they are worsening as he becomes more deconditioned. In review of patient's chart it appears a PSA was ordered and obtained. These results reviewed with the patient today. 06/28 4.8. Unable to obtain urine for urinalysis however PVR 77 mL. Discussed at length potential causes for lower urinary tract symptoms patient is experiencing. Discussed obtaining retroperitoneal ultrasound for further assessment evaluation. When asked he denies hematuria, dysuria, foul smelling urine, changes to urinary stream, flank pain, fever, and or chills. He does report a longstanding history of nicotine dependence. He reports smoking approximately half a pack per day. Discussed importance of timed/scheduled voiding giving decreased mobility as patient is in a wheelchair. Also discussed bladder triggers/irritant. PFS Medical History Chronic pulmonary edema Insomnia A-fib Physical deconditioning Lesion of right eyelid CHF (congestive heart failure) Imbalance Neuropathy Anxiety High cholesterol High blood pressure Surgical History History of biopsy No pertinent past surgical history Social History Housing: Assisted Living Facility Patient Tobacco Use Status: Current everyday Tobacco user Cigarette Packs Per Day: 0.5 Cigarettes Per Day: 10 Years Smoked: 47 e-Cigarette/Vaping Use: Never Used service: No Current occupational status: disabled Cognitive needs: No Hearing needs: No Vision needs: No Review of Systems Const Reports as per HPI Eyes Reports as per HPI ENT Reports no additional complaints Card Reports as per HPI Resp Reports as per HPI GI Reports no additional complaints Reports as per [facility] Musc Reports as per HPI Neuro Reports no additional complaints Psych Reports as per HPI Endo Reports no additional complaints Fernie/Lymph Reports no additional complaints Aller/Immun Reports no additional complaints Physical Exam Const General: cooperative, comfortable, no acute distress, well developed, alert and awake Nutritional Appearance: overweight Orientation/consciousness: patient oriented x3 Limitations: wheelchair HEENT Head: Yes normal to inspection, Yes normocephalic and Yes atraumatic Ears: hearing grossly normal bilaterally Eyes Other: Right eyelid with growth/lesion Neck Neck: Yes normal visual inspection and Yes trachea midline Chest Chest palpation & inspection: normal inspection of the chest Resp Effort & Inspection: normal respiratory effort and able to speak in complete sentences Cardio Rate: regular rate GI Inspection: Yes normal to inspection General: Yes no CVA tenderness Back/Spine/Pelvis Back: no CVA tenderness Skin General skin exam: no rashes or lesions noted Neuro General: patient oriented x3 Extrem Other: bilateral lower extremities appear to have chronic venous insufficiency. Psych Appearance: grossly normal and well kempt Mental Status: mental status grossly normal Speech and movement: Normal speech and movement present and Clear speech present Affect: normal affect Attitude: cooperative Thought process: Normal thought process present Thought content: Normal thought content present Insight: Fair insight present (Psych) Judgement: Fair judgement present (Psych) Office Procedures Post Void Residual Post Residual Void Post Void Residual (PVR): 77 [id number] Void Residual by ultrasound Assessment & Plan Assessment & Plan (1) Urinary incontinence: Code(s): R32 - Unspecified urinary incontinence Category: Medical (2) Elevated PSA: Code(s): R97.20 - Elevated prostate specific antigen [PSA] Category: Medical Plan Unable to obtain urine for urinalysis however PVR 77 mL. Discussed bladder triggers/irritants. Discussed importance of timed/scheduled voiding given decreased mobility Will obtain retroperitoneal ultrasound for further assessment evaluation. Discussed at length potential causes of elevated PSA. Discussed and stressed the importance of limiting/quitting nicotine dependence for overall health and well-being. Will obtain redraw of PSA with no sex the night before, no caffeine morning of, and no heavy lifting 1-2 days prior. Follow-up in 1-3 months with imaging and labs to be completed prior; or sooner with any issues, concerns, and or questions. Orders: Orders AMB Post Void Residual by ultrasound Today R32 - Unspecified urinary incontinence US retroperitoneal comp Today R32 - Unspecified urinary incontinence PSA,Total (Free>4and<10) Today R97.20 - Elevated prostate specific antigen [PSA] Patient Instructions: The patient had an opportunity to ask questions regarding the treatment plan. All questions were answered. Physical exam, labs, and imaging were discussed and reviewed in detail. As well as risks, benefits, and discussion of treatment choices. No major barriers to understanding were identified. The patient expressed understanding and agreement with the above treatment plan. The patient was made aware they should contact our office by phone for worsening of their current condition, the appearance of new symptoms, or with any questions or concerns. Compliance is encouraged with any medications and follow up testing that is ordered. It is a privilege to be allowed the opportunity to participate in? your urological care.? Again, if you have any questions or concerns If you have any questions or concerns please do not hesitate to contact me. The office is [phone]. This note is constructed using voice recognition software. While every effort has been made to ensure accuracy community integration specialist errors may have been included. Yours sincerely, SHAQUILLE Lai-ABIODUN Coding Level of Care Code New Pt Level 3 (06333) Diagnoses Urinary incontinence R32 Elevated PSA R97.20 CPT Codes Post Residual Void - PVR CPT Code: 78200-Zoky Void Residual by ultrasound ([id number])
== END 2023-08-26 13:31 | disposition home or self-care (01) ==
PROVIDERS: PCP Family Medicine; Visit Provider Nurse Practitioner Family
DX: R32 Unspecified urinary incontinence (principal); R97.20 Elevated prostate specific antigen [PSA]
CPT/HCPCS: 99203

== ENCOUNTER → 2023-08-26 12:39 | Outpatient (BNVA) | payer MEDICARE, SELFPAY | PROVIDERS: PCP Family Medicine; Visit Provider Nurse Practitioner Family | DX: R32 Unspecified urinary incontinence (principal); R97.20 Elevated prostate specific antigen [PSA] | CPT/HCPCS: 51798; 99202 ==